=== PATIENT | male | born 1950 | race Caucasian/White ===

== ENCOUNTER 2018-12-07 15:44 | Inpatient (IN) | payer MEDICARE, OTHER, MEDICAID | END 2018-12-10 11:42 | disposition home or self-care (01) | LOC: ER 15:44 → ED HOLD 17:00 → SUR 3N 22:20 | DX: K92.1 Melena (principal); E87.1 Hypo-osmolality and hyponatremia; D50.0 Iron deficiency anemia secondary to blood loss (chronic); Z85.72 Personal history of non-Hodgkin lymphomas ==

== ENCOUNTER 2018-12-13 13:36 | Observation (INO) | payer MEDICARE ==
[~2018-12-13] VITALS: Ht 185.4 cm; Wt 113.6 kg
[2018-12-13] VITALS (15 sets, daily range): BP systolic 100–152; BP diastolic 42–100
[~2018-12-13 13:36] MED LIST: COL100C PO; DIPH25CA83 PO; GABA600T13 PO; MELA10TA PO; PANT-47 PO; ceFAZolin inj. 3,000 MG in normal saline 100ml IV soln 100 ML IV ONE; famotidine 20mg tablet PO ONE; ringers solution, lacted 1,000 ML IV SCH
[2018-12-13] MEDS ORDERED: sevoflurane 250ml liquid IH ONE (14:18)
[2018-12-13] MEDS ORDERED: ondansetron/PF 4mg/2ml inj ONE (14:18)
[2018-12-13 14:43] LABS: BASOPHILS % (AUTO) 0.7 % (0-1); EOSINOPHILS # (AUTO) 0.2 X10'3 (0-0.9); EOSINOPHILS % (AUTO) 4.4 % (0-6); HEMATOCRIT 27.7 % (42.0-52.0); LYMPHOCYTES # (AUTO) 0.9 X10'3 (1.1-4.8); MEAN CORPUSCULAR HEMOGLOBIN 25.9 PG (27.0-31.0); MEAN CORPUSCULAR HGB CONC 32.6 g/dL (33.0-36.5); MEAN CORPUSCULAR VOLUME 79.4 FL (78-98); MEAN PLATELET VOLUME 7.4 FL (7.4-10.4); MONOCYTES # (AUTO) 0.5 X10'3 (0-0.9); MONOCYTES % (AUTO) 9.4 % (2-12); NEUTROPHILS # (AUTO) 3.5 X10'3 (1.8-7.7); NEUTROPHILS % (AUTO) 68.5 % (42-75); PLATELET COUNT 192 X10'3 (140-440); RED BLOOD COUNT 3.48 X10'6 (4.70-6.10); RED CELL DISTRIBUTION WIDTH 18.2 % (11.5-14.5); WHITE BLOOD COUNT 5.1 X10'3 (4.5-11.0)
[2018-12-13 14:56] LABS: ALANINE AMINOTRANSFERASE 24 U/L (12-78); ALBUMIN 3.5 G/DL (3.4-5.0); ALBUMIN/GLOBULIN RATIO 1.1 (1.1-1.5); ALKALINE PHOSPHATASE 93 IU/L (46-116); ANION GAP 10 (8-16); ASPARTATE AMINO TRANSFERASE 23 U/L (10-37); BILIRUBIN,TOTAL 0.4 MG/DL (0.1-1.0); BLOOD UREA NITROGEN 9 MG/DL (7-18); BUN/CREATININE RATIO 11.4 (5.4-32.0); CALCIUM 8.4 MG/DL (8.5-10.1); CHLORIDE 101 MMOL/L (99-107); CREATININE 0.79 MG/DL (0.60-1.10); GLUCOSE 93 MG/DL (70-104); POTASSIUM 3.8 MMOL/L (3.5-5.1); SODIUM 135 MMOL/L (135-145); TOTAL CARBON DIOXIDE 23.8 MMOL/L (24-32); TOTAL PROTEIN 6.8 G/DL (6.4-8.2); eGFR > 90 ML/MIN
[2018-12-13] MEDS ORDERED: BUPIVAcaine/PF 2.5mg/ml (0.25%) 10ml vial ONE (17:03)
[2018-12-13] MEDS ORDERED: ringers solution, lacted 1,000 ML IV SCH (17:12)
[2018-12-13] MEDS ORDERED: ondansetron/PF 4mg/2ml inj IV PRN (17:15)
[2018-12-13] MEDS ORDERED: morphine 4 MG/ML inj SYRINge IV PRN ×2 (17:15)
[2018-12-13] MEDS ORDERED: meperidine/PF 25mg/ml syringe IV PRN ×3 (17:15)
[2018-12-13] MEDS ORDERED: proCHLORperazine 10 MG/2 ml inj IV PRN (17:15)
[2018-12-13] MEDS ORDERED: fentaNYL/PF 50MCG/1 ML 2ML syringe ONE ×2 (17:15→17:51)
[2018-12-13] MEDS ORDERED: midazolam 2 mg/2 ml injection ONE (17:15)
[2018-12-13] MEDS ORDERED: propofol inj 20 ML IV ONE (17:18)
[2018-12-13] MEDS ORDERED: LIDOcaine 2% (20mg/ml) 5ml vial ONE (17:18)
[2018-12-13] MEDS ORDERED: dexamethasone sod phosphate 4mg/ml inj. ONE (18:11)
--- NOTE | 2018-12-13 18:15 | NUR ---
Received from OR via bed, accompanied by Anesthesiologist. Report received. Initial physical assessment done and recorded.
[2018-12-13] MEDS ORDERED: HYDROcodone/acetaminophen 10/325mg tab PO ONE (18:35)
--- NOTE | 2018-12-13 19:15 | NUR ---
Discharge criteria met, report to receiving floor. Transferred to room in stable condition.
--- NOTE | 2018-12-13 21:31 | NUR ---
Spoke to Dr. Martinez. Patient has not yet urinated. Dr. Martinez no longer wants patient to go home. Standing orders for straight cath should the pt become uncomfortable and unable to urinate with bladder scan >500. Also ordered pain meds for stay. Patient advised.
[2018-12-13] MEDS ORDERED: HYDROcodone/acetaminophen 10/325mg tab PO PRN ×2 (21:35)
[2018-12-14] VITALS: BP 141/81
[2018-12-14 04:00] VITALS: BP 135/79
--- NOTE | 2018-12-14 06:38 | NUR ---
Problems reprioritized. Patient report given, questions answered & plan of care reviewed with HEMA Pace.
--- NOTE | 2018-12-14 06:52 | NUR ---
Patient in room [facility]. I have received report from Martha GARRIDO and had the opportunity to ask questions and assume patient care.
--- NOTE | 2018-12-14 10:16 | NUR ---
DR Martinez called about patient. stated ok to DC. All DC instructions and prescription given to patient. patient appeared stable for DC. DC home with friend in private car home. [id number]
== END 2018-12-14 10:15 | disposition home or self-care (01) ==
LOC: PAS 13:36 → SUR 3N 19:14
PROVIDERS: ADMIT Surgery; ATTEND Surgery
DX: K64.8 Other hemorrhoids (principal); K92.2 Gastrointestinal hemorrhage, unspecified
CPT/HCPCS: 36415; 46255; 80053; 85025; 87070; 96374; 99284; A6223; G0378; J0690; J1100; J2001; J2250; J2405; J2704; J3010; J3490; 88304; 99285; A6449; A7000; J7030; J7120